=== PATIENT | female | born 1970 | race Caucasian/White ===

== ENCOUNTER 2020-09-09 10:44 | Emergency (ER) | payer OTHER, SELFPAY ==
[2020-09-09] VITALS (12 sets, daily range): BP systolic 118–178; BP diastolic 87–109; PULSE 92–100; RESP 13–18; TEMP 36.8; O2SAT 97–100
--- NOTE | ~2020-09-09 | CT_ITS ---
EXAMINATION: CT brain wo con DATE: 09/09/2020 12:14 INDICATION: Weakness. TECHNIQUE: Computed tomography (CT) of the head was performed without intravenous contrast. The dose- length product was 605.33 mGy-cm. Automated exposure control and iterative reconstruction technique w ere employed. COMPARISON: None FINDINGS: There are scattered mild periventricular and subcortical white matter changes, most likely related to small vessel ischemic disease (microangiopathy). No acute intracranial hemorrhage, infarct ion, mass or mass effect. No ventriculomegaly or midline shift. Basilar cisterns are patent. Paranasa l sinuses and mastoids are pneumatized. No depressed skull fractures. IMPRESSION: 1. No acute intracranial abnormality. 2: Chronic age-related findings. Reviewed, dictated and finalized at location A. MINER
--- NOTE | ~2020-09-09 | CT_ITS ---
EXAMINATION: CT lumbar spine wo con DATE: 09/09/2020 12:14 INDICATION: Severe back pain TECHNIQUE: Computed tomography (CT) of the lumbar spine was performed without intravenous contrast. T he dose-length product was 227.98 mGy-cm. Automated exposure control and iterative reconstruction von hnique were employed. COMPARISON: None FINDINGS: There is levocurvature of the lumbar spine centered at L4-5. There is disc narrowing at L4- 5 and L5-S1. There are prominent dorsal osteophytes at these levels. There are facet hypertrophic ciara nges at L3-4, L4-5 and L5-S1. There is mild annular disc bulging at L4-5 causing mild central canal, lateral recess and neural foraminal narrowing secondary to combination of disc bulge, facet hypertrop hy. At L5-S1 there is prominent endplate hypertrophy and facet hypertrophy with mild annular disc bul ging causing central canal and neural foraminal narrowing. No acute fracture or traumatic malalignmen t. IMPRESSION: 1. Moderate spondylosis with associated spinal stenosis at L4-5 and L5-S1. Reviewed, dictated and finalized at location A. RER
--- NOTE | ~2020-09-09 | CT_ITS ---
EXAMINATION: CT cervical spine wo con DATE: 09/09/2020 12:14 INDICATION: Neck pain TECHNIQUE: Computed tomography (CT) of the cervical spine was performed without intravenous contrast. The dose-length product was 188 mGy-cm. Automated exposure control and iterative reconstruction tech nique were employed. COMPARISON: None FINDINGS: There are surgical changes consistent with posterior fusion at C5-C7, likely related to old fractures.. There is disc narrowing and endplate degenerative changes at these levels. Odontoid proc ess within our normal limits. Lung apices are normal. No acute fracture or traumatic malalignment is identified. There is mild-moderate multilevel uncinate hypertrophy. No significant paraspinal soft ti ssue abnormality. IMPRESSION: 1. No acute abnormality of the cervical spine. Reviewed, dictated and finalized at location A. ICAL RESEARCH MANAGEMENT ASSOCIATE
--- NOTE | ~2020-09-09 | XR_ITS ---
EXAMINATION: XR chest 1V portable 09/09/2020 11:51 INDICATION: CovidPneumonia PROCEDURE: AP portable chest COMPARISON: No prior studies for comparison. FINDINGS: There are left lower lobe infiltrates which may represent atelectasis or developing pneumon ia. The cardiomediastinal silhouette is within normal limits. There are no pleural effusions. There is no pneumothorax suspected. IMPRESSION: 1: Left lower lobe infiltrates, atelectasis versus developing pneumonia.. Reviewed, dictated and finalized at location A. RATING MACHINE OPERATOR
--- NOTE | 2020-09-09 11:22 | ECG_ITS ---
Measurements Intervals [place] Rate: 96 P: 59 TX: 166 QRS: 48 QRSD: 101 T: 74 QT: 364 QTc: 462 Interpretive Statements SINUS RHYTHM BORDERLINE ST-T WAVE ABNORMALITY- HIGH LATERAL LEADS BORDERLINE ECG Electronically Signed On 09-09-2020 16:14:40 [employer]ODU[employer] SUPERVISOR by Milton Cruz D.O.
[2020-09-09 11:44] LABS: Basophils Percent Auto 0.5 % (0.2-1.2); Eosinophils Absolute Auto 0.2 K/mm3 (0-0.3); Eosinophils Percent Auto 2.8 % (0-4.4); Hematocrit 29.1 % (37.0-47.0); Hemoglobin 9.4 g/dL (12.0-15.0); Immature Granulocyte Absolute 0.06 K/mm3 (0.00-0.031); Immature Granulocyte Percent A 0.8 % (0-0.5); Lymphocytes Absolute Auto 0.87 K/mm3 (0.9-3.2); Lymphocytes Percent Auto 11.5 % (18.3-44.2); Mean Corpuscular HGB Conc 32.3 g/dl (32-36); Mean Corpuscular Hemoglobin 28.1 pg (26-34); Mean Corpuscular Volume 87.1 fl (80-100); Mean Platelet Volume 9.6 fl (7.4-10.4); Monocytes Absolute Auto 0.3 K/mm3 (0.1-0.6); Monocytes Percent Auto 4.5 % (2.6-8.5); Neutrophils Percent Auto 79.9 % (45.5-73.1); Platelet Count Result 166 k/mm3 (150-375); Red Blood Count 3.34 M/mm3 (4.2-5.4); Red Cell Distribution Width 13.7 % (11.5-14.5); White Blood Count 7.5 K/mm3 (4.5-10.0)
[2020-09-09] MEDS: ONDANSETRON INJ 4 MG/2 ML VIAL IV PUSH (11:50)
[2020-09-09] MEDS: HYDROmorphone HCL INJ (*CRX) 1 MG/ML SYR 0.5 MG IV PUSH ×3 (11:51→20:05)
[2020-09-09 12:01] LABS: Partial Thromboplastin Time 30.6 SECONDS (22.3-36.8)
[2020-09-09 12:04] LABS: Alanine Aminotransferase 87 U/L (4-35); Albumin Level 3.4 g/dL (3.5-5.1); Alkaline Phosphatase 273 U/L (38-126); Anion Gap 6 mmol/L (8-16); Aspartate Amino Transferase 110 U/L (14-36); Bilirubin,Total 0.3 mg/dL (0.2-1.3); Blood Urea Nitrogen 11 mg/dL (7-17); Carbon Dioxide 30 mmol/L (22-30); Chloride 98 mmol/L (98-107); Estimated CRCL calculation 88 ml/min; Estimated Glomerular Filt Rate > 60; Glucose 202 mg/dL (65-105); Magnesium 1.6 mg/dL (1.6-2.3); Potassium 3.4 mmol/L (3.4-5.0); Sodium 134 mmol/L (137-145)
[2020-09-09 12:22] LABS: Creatine Kinase 51 U/L (30-135)
--- NOTE | 2020-09-09 13:35 | ED.BACK ---
HPI - Back Pain/Injury General Chief Complaint: Back Pain/Injury Stated Complaint: back pain Time Seen by Provider: 09/09/20 10:54 Source: patient Mode of arrival: EMS History of Present Illness HPI Narrative: This patient is a 50 year old female with history of Diabetes Mellitus, hypertension who presents via EMS for evaluation of severe mid low back pain. Patient was discharged from [facility] yesterday to [facility] for rehabilitation. She states she was hospitalized around [place] for treatment of a left leg abscess. She was found to have covid pneumonia during the hospitalization and she states her test was positive 08/29/20. During that hospitalization she report she developed leg weakness and numbness on 09/04/20 while she was in the hospital. She was told she had bulging disc . She reports she was discharged to custodial yesterday. She reports she developed severe mid low back pain radiating to her right hip. She states during her hospitalization she having issues telling if she needed to urinate. She reports today she could not feel when they were wiping her. She thinks her numbness and tingling after progressing. Related Data Home Medications Medication Instructions Recorded Confirmed Lactobacillus acidophilus 09/09/20 [Acidophilus] acetaminophen [Tylenol] 650 mg PO ONCE PRN 09/09/20 amoxicillin-pot clavulanate 1 tablet PO Q12H 09/09/20 [Augmentin] bisacodyl 10 PO 09/09/20 capsaicin 1 applic TOPICAL PRN PRN 09/09/20 gabapentin 300 mg PO TID 09/09/20 glucagon mg 09/09/20 insulin glargine [Lantus Solostar 10 unit SUBCUT QAM 09/09/20 U-100 Insulin] insulin lispro 09/09/20 insulin lispro 8 unit SUBCUT TID 09/09/20 lisinopril 5 mg PO DAILY 09/09/20 magnesium hydroxide [Milk of 400 mg PO DAILY PRN 09/09/20 Magnesia] mineral oil [Baby Oil (mineral TOPICAL 09/09/20 oil)] Allergies Allergy/AdvReac Type Severity Reaction Status Date / Time morphine Allergy Nausea Verified 09/09/20 11:08 niacin Allergy Rash Verified 09/09/20 11:08 Review of Systems Constitutional: Constitutional: Denies chills and Denies fever(s) Cardiovascular: Cardiovascular: Denies chest pain Respiratory: Respiratory: Denies cough and Denies dyspnea Gastrointestinal: Comments: bowel incontinence Genitourinary: Genitourinary: Reports urinary incontinence Musculoskeletal: Musculoskeletal: Reports abnormal gait and Reports back pain Neurologic: Reports focal weakness, Reports numbness and Reports weakness PMFSH Past Medical History Medical History (Updated 09/09/20 @ 19:53 by Sarah Reddy MD) Anemia Chronic pancreatitis Diabetes mellitus Peripheral neuropathy Surgical History Surgical History (Updated 09/09/20 @ 18:32 by Sarah Reddy MD) H/O cervical spine surgery Hx of appendectomy Hx of cholecystectomy Social History Social History (Updated 09/09/20 @ 18:33 by Sarah Reddy MD) Smoking status: Never smoker Exam Const: General: no acute distress, alert and ill appearing chronically Orientation/consciousness: patient oriented x3 HENMT: Head: normocephalic and atraumatic Face and sinus: face symmetric Mouth: Yes moist mucous membranes Eyes: Pupils: Equal, round and reactive pupils present EOM: EOMs intact bilaterally Resp: Effort & Inspection: normal respiratory effort and no retractions Auscultation: clear to auscultation bilaterally Cardio: Rate: regular rate Rhythm: regular rhythm Heart sounds: no murmurs GI: GI Palp: Yes Soft to palpation, No Tenderness to palpation present (GI) and No Guarding due to palpation present (GI) Auscultation: normal bowel sounds Rectal Exam: abnormal sphincter tone decreased Skin: General skin exam: pallor Other: bruising to bilateral forearms Neuro: General: patient oriented x3 and CN's II-XI intact bilaterally Cranial nerves: Yes CN's II-XII intact bilaterally Speech: normal speech
[2020-09-09] MEDS: lisinopriL 10 MG TABLET PO (17:46)
--- NOTE | 2020-09-09 18:52 | PC.NURSE ---
[facility] called for transfer to [facility] at 1813 At 1847 [facility] called stating they were unable to take transfer. [facility] called at 1849 for transfer to [facility] Accepted ETA 1999 Trip # [id number]
== END 2020-09-09 20:09 | disposition short-term general hospital (02) ==
PROVIDERS: Emergency Provider General Practice; PCP Emergency Medicine
DX: M54.5 Low back pain (principal); R20.0 Anesthesia of skin; R53.1 Weakness; U07.1 COVID-19; J12.89 Other viral pneumonia; I10 Essential (primary) hypertension; K86.1 Other chronic pancreatitis; E11.42 Type 2 diabetes mellitus with diabetic polyneuropathy; Z79.4 Long term (current) use of insulin; M47.817 Spondylosis without myelopathy or radiculopathy, lumbosacral region; M48.07 Spinal stenosis, lumbosacral region; R94.31 Abnormal electrocardiogram [ECG] [EKG]; R91.8 Other nonspecific abnormal finding of lung field
CPT/HCPCS: 36415; 70450; 71045; 72125; 72131; 80053; 82550; 83735; 85025; 85610; 85730; 93005; 96374; 96375; 96376; 99285; A9270; J1170; J2405

== ENCOUNTER 2022-06-26 17:13 | Emergency (ER) | payer OTHER, SELFPAY ==
[2022-06-26] VITALS (19 sets, daily range): BP systolic 35–179; BP diastolic 25–93; PULSE 0–93; RESP 0–20; TEMP 36.4; O2SAT 98–100
--- NOTE | ~2022-06-26 | XR_ITS ---
EXAMINATION: XR chest ET placement Exam Date/Time: 06/26/2022 18:05 CDT HISTORY: ET PLACEMENT; pt unresponsive Comparison: 09/09/2020. RESULT: Lines, tubes, and devices: Endotracheal tube terminating at the pedro luis. Lungs and pleura: Diffuse bilateral patchy airspace disease. Minimal bilateral angle blunting. Cardiomediastinal silhouette: Stable, given interval differences in technique. Other: No acute osseous or upper abdominal finding. IMPRESSION: Endotracheal tube terminates at the pedro luis, consider 4 cm retraction. Bilateral airspace disease may reflect edema or infection. Trace bilateral effusions. Results reported telephonically to Dr. Levine by Dr. Hernandez at 6:31 PM on 06/26/2022. Reviewed, dictated and finalized at location K. IMPRESSION: Endotracheal tube terminates at the pedro luis, consider 4 cm retraction. Bilateral airspace disease may reflect edema or infection. Trace bilateral effusions. Results reported telephonically to Dr. Levine by Dr. Hernandez at 6:31 PM on 06/26.
[2022-06-26 18:21] LABS: Bilirubin Urine Negative (Negative); Blood Urine 2+ (Negative); Color Urine Yellow (Yellow); Glucose Urine UA Negative (Negative); Ketones Urine Negative (Negative); Leukocyte Esterase Ur 3+ LEU/UL (Negative); Nitrate Urine Negative (Negative); Protein Urine 1+ mg/dL (Negative); Urobilinogen Urine 0.2 mg/dL (<2.0)
[2022-06-26 18:23] LABS: Hematocrit 23.8 % (37.0-47.0); Hemoglobin 7.2 g/dL (12.0-15.0); Immature Platelet Fraction Pct 6.5 % (0.9-11.2); Mean Corpuscular HGB Conc 30.3 g/dl (32-36); Mean Corpuscular Hemoglobin 29.1 pg (26-34); Mean Corpuscular Volume 96.4 fl (80-100); Mean Platelet Volume 11.4 fl (7.4-10.4); Platelet Count Result 67 k/mm3 (150-375); Red Blood Count 2.47 M/mm3 (4.2-5.4); Red Cell Distribution Width 16.1 % (11.5-14.5); White Blood Count 22.9 K/mm3 (4.5-10.0)
[2022-06-26 18:24] LABS: Add Urine Microscopic? YES; Appearance Urine Slightly Cloudy (Clear)
[2022-06-26 18:27] LABS: Bacteria Urine 4+ /hpf; Mucus Urine Rare /lpf; RBC Urine 21-50 /hpf (0-2); Squamous Epithelial Cell Urine Many /hpf (Few); WBC Urine >75 /hpf
[2022-06-26 18:31] LABS: INR 4.6
[2022-06-26 18:50] LABS: Alanine Aminotransferase 661 U/L (6-35); Albumin Level 2.5 g/dL (3.5-5.1); Alkaline Phosphatase 226 U/L (38-126); Anion Gap 22 mmol/L (8-16); Bilirubin,Total 1.1 mg/dL (0.2-1.3); Blood Urea Nitrogen 52 mg/dL (7-17); CRP 16.6 mg/dL (<1.0); Calcium 7.7 mg/dL (8.4-10.2); Carbon Dioxide 7 mmol/L (22-30); Chloride 105 mmol/L (98-107); Estimated CRCL calculation 24 ml/min; Estimated Glomerular Filt Rate 22; Glucose 62 mg/dL (65-110); Potassium 4.2 mmol/L (3.4-5.0); Sodium 134 mmol/L (137-145)
[2022-06-26 18:54] LABS: Band Neutrophils Percent 11 % (0-6); Lymphocytes Absolute Manual 8.01 K/mm3 (1.1-4.5); Monocytes Absolute Manual 1.14 K/mm3 (0.1-0.90); Monocytes Percent Manual 5 % (3-9); Neutrophils Absolute Manual 13.74 K/mm3 (1.7-7.2); Neutrophils Percent Manual 49 % (46-73); Nucleated Red Blood Cells 1 %; Total Cells Counted 100
[2022-06-26 18:55] LABS: Anisocytosis 2+ (NORMAL); Hypochromasia 1+ (NORMAL); Platelet Estimate Decreased (Adequate)
[2022-06-26 19:04] LABS: Aspartate Amino Transferase 2582 U/L (14-36)
--- NOTE | 2022-06-26 19:08 | ED.CPR ---
HPI - CPR General Chief Complaint: Cardiac Arrest/CPR Stated Complaint: code blue - unresponsiveness History of Present Illness HPI narrative: Pt found in room not responding at [place]. Pt last seen 45 minutes prior. On EMS arrival pt in asystole. CPR started, pt given numerous rounds of epi in route and airgel placed. Pt asystole or PEA in route per EMS and coded for over 30 minutes. Pt has history of rectal cancer and has colectomy and colostomy. Related Data Home Medications Medication Instructions Recorded Confirmed Lactobacillus acidophilus 09/09/20 (Acidophilus capsule) acetaminophen 325 mg tablet 650 mg PO ONCE PRN Pain 09/09/20 (Tylenol) amoxicillin 875 mg-potassium 1 tablet PO Q12H 09/09/20 clavulanate 125 mg tablet (Augmentin) bisacodyl 5 mg tablet,delayed 10 PO 09/09/20 release capsaicin 0.025 % topical cream 1 applic topical PRN PRN Itching 09/09/20 gabapentin 300 mg tablet 300 mg PO TID 09/09/20 glucagon 1 mg injection kit mg 09/09/20 insulin glargine 100 unit/mL (3 10 unit subcut QAM 09/09/20 mL) subcutaneous pen (Lantus Solostar U-100 Insulin) insulin lispro 100 unit/mL 09/09/20 subcutaneous cartridge insulin lispro 100 unit/mL 8 unit subcut TID 09/09/20 subcutaneous cartridge lisinopril 5 mg tablet 5 mg PO DAILY 09/09/20 magnesium hydroxide 400 mg/5 mL 400 mg PO DAILY PRN Constipation 09/09/20 oral suspension (Milk of Magnesia) mineral oil topical 09/09/20 Allergies Allergy/AdvReac Type Severity Reaction Status Date / Time morphine Allergy Nausea Verified 09/09/20 11:08 niacin Allergy Rash Verified 09/09/20 11:08 Review of Systems Review of Systems: ROS unobtainable: Yes unobtainable due to medical condition PMFSH Past Medical History Medical History (Updated 06/26/22 @ 19:36 by Lin Hoover III, DO) Anemia Chronic pancreatitis Diabetes mellitus Peripheral neuropathy Surgical History Surgical History (Updated 09/09/20 @ 18:32 by Sarah Reddy MD) H/O cervical spine surgery Hx of appendectomy Hx of cholecystectomy Social History Social History (Updated 09/09/20 @ 18:33 by Sarah Reddy MD) Smoking status: Never smoker Gender identity (if verbalized by the patient): Female Exam Const: Other: unresponsive HENMT: Other: stool in mouth and airgel tube Eyes: Other: pupils fixed and dilated Resp: Other: clear bs with bagged respirations only Cardio: Other: no pulse initially except with CPR (Isaiah) GI: Other: colostomy in place Skin: Other: mottled Extrem: Other: mottled Course Course Emergency Course: pt got pulse back and BP after one dose of epi in ER. Pt given IVF and labs drawn and additional IV sites obtained. Definitive airway placed with 7.0 ETT 25 cm at lips, pos shauna change using [place] Scope. Over next two hour pt arrested several times and was brought back several times using epi/atropine/bicarb and levophed. See code sheet for details and times. Talked to daughter and discussed grim prognosis. Daughter said that if her mother coded again that she did not want to start CPR and wanted her to be kept comfortable. Pt lost pulse and in PEA shortly after. CPR not resumed, ventilator stoped and pt with daughter at bedside. Time of 1853. Vital Signs Vital signs: Vital Signs Pulse Oximetry 98 06/26/22 17:22 Oxygen Delivery Bag Valve Mask 06/26/22 17:22 Temperature 97.5 F L 06/26/22 18:03 Pulse Rate 0 L 06/26/22 19:00 Respiratory Rate 0 L 06/26/22 19:00 Blood Pressure 35/25 L 06/26/22 18:51 Pulse Oximetry 100 06/26/22 18:32 Oxygen Delivery Mechanical Ventilation 06/26/22 18:32 Fraction of Inspired Oxygen 100 06/26/22 18:18 MDM - Cardiac Arrest/CPR Lab Data Result diagrams: 06/26/22 18:09 06/26/22 18:09 Labs: Lab Results 06/26/22 06/26/22 06/26/22 Range/Units 18:09 18:09 18:09 WBC 22.9 H
[2022-06-26 19:11] LABS: Lactic Acid Reflex 12.3 mmol/L (0.7-2.0)
[2022-06-26 19:35] LABS: Partial Thromboplastin Time 182.5 SECONDS (22.3-36.8)
[2022-06-26 21:17] LABS: Reflex Lactic Acid Yes or No Add Lactic
== END 2022-06-26 18:54 | disposition expired ==
PROVIDERS: Emergency Provider Emergency Medicine; PCP Emergency Medicine
DX: I46.9 Cardiac arrest, cause unspecified (principal); C20 Malignant neoplasm of rectum; E11.42 Type 2 diabetes mellitus with diabetic polyneuropathy; D64.9 Anemia, unspecified; K86.1 Other chronic pancreatitis; Z90.49 Acquired absence of other specified parts of digestive tract; Z93.3 Colostomy status; Z79.4 Long term (current) use of insulin
CPT/HCPCS: 31500; 36415; 80053; 81001; 83605; 85025; 85055; 85610; 85730; 86140; 87077; 87086; 87088; 87186; 92950; 96365; 99285; J0171; J2543; J7030; J7060